=== PATIENT | female | born 1965 | race Caucasian/White ===

== ENCOUNTER → 2017-05-24 | Day surgery (SDC) | payer OTHER, MEDICARE ==
[~2017-05-24] VITALS: Ht 167.6 cm; Wt 99.8 kg
[~2017-05-24] MED LIST: ENTYVIO300 M1 IV; FENOFIBRIC ACID45 M1 PO; GABAPENTIN300 M2 PO; HUMALOG KW200 UNIT/1 SC; JANUMET 50-1,01 EACH PO; LIDOCAINE1 EACH TOP; LISINOPRIL10 M1 PO; NORTRIPTYLINE H25 M2 PO; PAMELOR50 M1 PO; PRILOSEC OTC20 M1 PO; RELPAX40 M1 PO; TRESIBA FL100 UNIT/1 SC; VITAMIN D2000 UNI1 PO
--- NOTE | 2017-05-24 16:08 | Operative Report ---
Operative/Inv Procedure Report Surgery Date: 05/24/17 Name of Procedure: Right temporal artery biopsy Pre-Operative Diagnosis: Rule out temporal arteritis Post-Operative Diagnosis: Same Estimated Blood Loss: scant Surgeon/Bilingual Legal Assistant: Cj Miller MD Anesthesia: local monitored anesthesi Specimens: Right temporal artery Operative/Procedure Note Note: The patient was brought to the operating room and placed on the operating table in the supine position and prepped and draped in the usual sterile fashion. Prior to the start of the procedure, a timeout was taken to confirm the patient and procedure, and a preoperative dose of 2 g of Ancef was administered. I began by mapping the temporal artery from the edge of the year as it advanced along the scalp and marking it while palpating. I injected local anesthetic in the area that was marked and used a 15 blade to incise the skin. I dissected down slowly using a combination of sharp dissection, electrocautery. I identified the temporal artery which was branching in our field of view. I ligated a side branch of the artery and then I ligated the artery proximally and distally with 3-0 silk ligatures. Approximately a 2.5 cm segment of artery was isolated. This was transected and passed off as specimen. I irrigated the wound and achieved hemostasis with electrocautery. The wound was closed with interrupted 4-0 Vicryl sutures for the deep dermal stitches, and a running subcuticular 4-0 Monocryl for the skin edge closure. Topical Dermabond glue was applied. The patient tolerated the procedure well and I was present and scrubbed throughout. Discharge Disposition: PACU CC: Teressa POE,Konstantin Espitia
== END ==
LOC: STS 00:48
DX: G44.221 Chronic tension-type headache, intractable (principal); G43.009 Migraine without aura, not intractable, without status migrainosus; H47.013 Ischemic optic neuropathy, bilateral; I10 Essential (primary) hypertension; E11.9 Type 2 diabetes mellitus without complications; M32.9 Systemic lupus erythematosus, unspecified; K21.9 Gastro-esophageal reflux disease without esophagitis; M79.7 Fibromyalgia; K50.90 Crohn's disease, unspecified, without complications
CPT/HCPCS: 88305; 88313; J0690; J2250